=== PATIENT | female | born 1955 | race Caucasian/White ===

== ENCOUNTER → 2019-03-27 12:52 | Outpatient (BNVA) | payer MEDICARE, OTHER, MEDICAID, SELFPAY | PROVIDERS: Family Provider Family Medicine; PCP Nurse Practitioner; Visit Provider Nurse Practitioner Family | DX: I10 Essential (primary) hypertension (principal); F32.9 Major depressive disorder, single episode, unspecified; E03.9 Hypothyroidism, unspecified; E78.5 Hyperlipidemia, unspecified; G47.00 Insomnia, unspecified; K21.9 Gastro-esophageal reflux disease without esophagitis | CPT/HCPCS: 80053; 80061; 84443; 85025 ==

== ENCOUNTER → 2019-08-24 12:12 | Outpatient (BNVA) | payer MEDICARE, OTHER, MEDICAID, SELFPAY | PROVIDERS: Family Provider Family Medicine; PCP Nurse Practitioner; Visit Provider Nurse Practitioner Family | DX: I10 Essential (primary) hypertension (principal); E55.9 Vitamin D deficiency, unspecified; F32.9 Major depressive disorder, single episode, unspecified; K21.9 Gastro-esophageal reflux disease without esophagitis; E03.9 Hypothyroidism, unspecified; L30.9 Dermatitis, unspecified; F41.8 Other specified anxiety disorders; G47.00 Insomnia, unspecified; E78.5 Hyperlipidemia, unspecified | CPT/HCPCS: 80053; 80061; 82306; 83735; 85025 ==

== ENCOUNTER → 2019-09-17 15:06 | Outpatient (BNVA) | payer MEDICARE, OTHER, MEDICAID, SELFPAY | PROVIDERS: Family Provider Family Medicine; PCP Family Medicine; Visit Provider Nurse Practitioner Family | DX: E03.9 Hypothyroidism, unspecified (principal); M79.641 Pain in right hand | CPT/HCPCS: 73120; 84443; 85025 ==

== ENCOUNTER → 2019-12-26 15:32 | Outpatient (BNVA) | payer MEDICARE, OTHER, SELFPAY | PROVIDERS: Family Provider Family Medicine; PCP Family Medicine; Visit Provider Orthopaedic Surgery | DX: M79.641 Pain in right hand (principal) | CPT/HCPCS: 73140 ==

== ENCOUNTER → 2020-04-22 17:21 | Outpatient (BNVA) | payer MEDICARE, OTHER, SELFPAY | PROVIDERS: Family Provider Family Medicine; PCP Family Medicine; Visit Provider Nurse Practitioner Family | DX: F32.9 Major depressive disorder, single episode, unspecified (principal); E03.9 Hypothyroidism, unspecified; I10 Essential (primary) hypertension; E78.5 Hyperlipidemia, unspecified; E55.9 Vitamin D deficiency, unspecified; G47.00 Insomnia, unspecified; M65.321 Trigger finger, right index finger; F41.8 Other specified anxiety disorders; K21.9 Gastro-esophageal reflux disease without esophagitis; F17.211 Nicotine dependence, cigarettes, in remission | CPT/HCPCS: 80053; 80061; 82306; 84443; 85025 ==

== ENCOUNTER → 2020-08-04 16:02 | Outpatient (BNVA) | payer MEDICARE, OTHER, SELFPAY | PROVIDERS: Family Provider Family Medicine; PCP Family Medicine; Visit Provider Nurse Practitioner Family | DX: F32.9 Major depressive disorder, single episode, unspecified (principal); K21.9 Gastro-esophageal reflux disease without esophagitis; E03.9 Hypothyroidism, unspecified; I10 Essential (primary) hypertension; E78.5 Hyperlipidemia, unspecified; G47.00 Insomnia, unspecified; Z68.33 Body mass index [BMI] 33.0-33.9, adult | CPT/HCPCS: 80053; 80061; 84443; 85025 ==

== ENCOUNTER 2020-11-29 17:07 | Emergency (ER) | payer MEDICARE, OTHER, SELFPAY ==
[2020-11-29 17:29] VITALS: BP 154/73; PULSE 154; RESP 18; TEMP 13.3; O2SAT 98; BMI 33.3
--- NOTE | 2020-11-29 19:33 | ED_ITS ---
HPI - Wound/Laceration General: Chief Complaint: Wound/Laceration Stated Complaint: laceration to right hand/finger Time Seen by Provider: 11/29/20 19:33 History of Present Illness: HPI narrative: 65-year-old female comes in today with injury to the right index finger. Patient was working on the brakes of her vehicle striking it with a crescent wrench which slipped causing her to strike her dorsal index finger causing a laceration. Patient has a 2 cm laceration to the finger. Patient does have an old injury to the finger where tendon function was compromised. Patient needs her tetanus updated. Patient denies any other concerns. Review of Systems General: Reports: 10 or more systems reviewed and unremarkable except in HPI and below Skin/Breast: Reports: other (Finger laceration.) PFSH ED PFSH: Medical History (Updated 11/29/20 @ 20:29 by ALVINA Finney) Depression with anxiety Essential hypertension GERD (gastroesophageal reflux disease) Hyperlipemia Hypothyroid Insomnia Vitamin D insufficiency Surgical History H/O eye surgery (~03/2019) S/P tubal ligation Family History Family/Other CAD (coronary artery disease) Multiple family members Social History Smoking and tobacco status: former smoker Quit status (tobacco): has quit using tobacco Year quit tobacco: 1972 Former quit date comment: smoked 2-3 PPD x 3 yrs Second hand smoke exposure: Yes Alcohol intake: never Lives independently: Yes Household members: spouse Marital status: Current occupational status: retired History of recent travel: No Current gender identity: Female Physical Exam Const: COMMON NORMALS: no acute distress and patient oriented x3 GENERAL APPEARANCE: cooperative HENMT: COMMON NORMALS: normocephalic and Normal external nose present HEAD & SCALP: normal to inspection and normocephalic NOSE: Normal external nose present Eye: GENERAL EYE: appearance normal, both eyes and all related structures Neck/C-Spine: COMMON NORMALS: full ROM Chest: COMMONS NORMALS: normal inspection of the chest Resp: COMMON NORMALS: normal respiratory effort EFFORT & INSPECTION: Yes able to speak in complete sentences Cardio: COMMON NORMALS: regular rate and regular rhythm RATE: regular rate RHYTHM: regular rhythm GI: COMMON NORMALS: non-tender Extremity: COMMON NORMALS: normal to inspection Neuro: COMMON NORMALS: patient oriented x3 and moves all extremities Psych: COMMON NORMALS: mental status grossly normal and cooperative Skin: NARRATIVE SKIN EXAM: 2 cm laceration to the dorsal right index finger on the proximal phalanx. Procedures Laceration Laceration 1: Site: hand Side (If applicable): right Size (cm): 2 Description: linear Depth: simple, single layer Local Anesthetic: bupivacaine 0.25% Amount of anesthesia used (mL): 1 Pre-repair: wound explored and irrigated extensively Skin layer closed with: nylon Size (cm): 5-0 Number of sutures: 4 Technique: simple, interrupted Course Vital Signs: Vital signs: Vital Signs Temperature 56 F L 11/29/20 17:29 Pulse Rate 53 L 11/29/20 19:35 Respiratory Rate 18 11/29/20 17:29 Blood Pressure 174/91 11/29/20 19:35 Pulse Oximetry 98 11/29/20 19:35 MDM - Wound/Laceration MDM Narrative: Medical decision making narrative: Patient comes in for injury to the right index finger. On exam patient appears well. Patient has some reduced mobility to the finger due to an old injury. There is a 2 cm laceration noted. No signs of tendon laceration is noted. No fracture is noted. Differential diagnosis includes laceration, contusion, need for prophylaxis tetanus. Tetanus was updated. Wound was closed with four 5-0 sutures. Patient tolerated well. Discharge Plan Discharge Patient Disposition: Home Clinical Impression: Laceration of finger Qualifiers: Encounter type: initial encounter Finger: index finger Damage to nail status: without damage Foreign body presence: without foreign body Laterality: right Qualified Code(s): S61.210A - Laceration without foreign body of right index finger without damage to nail, initial encounter Condition: Stable Prescriptions: New clindamycin HCl 150 mg capsule 150 mg PO BID Qty: 10 RF: 0 No Action omega 9-zwg-taa-fish oil [Fish Oil] 360-1,200 mg capsule,delayed release(DR/EC) 1 cap PO DAILY RF: 0 ketoconazole 2 % cream 1 applic TOPICAL BID Qty: 30 RF: 0 mupirocin 2 % ointment 1 applic TOPICAL BID Qty: 22 RF: 0 potassium gluconate 595 mg (99 mg) tablet extended release See Rx Instructions PO .COMPLEX RF: 0 betamethasone, augmented 0.05 % ointment 1 applic TOPICAL BID Qty: 50 RF: 4 citalopram 20 mg tablet 20 mg PO QDAY 90 Days Qty: 90 RF: 1 famotidine 20 mg tablet 20 mg PO QDAY 90 Days Qty: 90 RF: 1 levothyroxine 50 mcg tablet 50 mcg PO QDAY 90 Days Qty: 90 RF: 1 lisinopril 20 mg tablet 20 mg PO QDAY 90 Days Qty: 90 RF: 1 lovastatin 20 mg tablet 20 mg PO QDAY 90 Days Qty: 90 RF: 1 zolpidem [Ambien] 10 mg tablet 10 mg PO .at bedtime PRN (Reason: insomnia) 30 Days Qty: 30 RF: 5 estradiol [Estrace] 0.01 % (0.1 mg/gram) cream 1 gm VAGINAL .TWICE A WEEK RF: 0 loratadine [Claritin] 10 mg tablet 10 mg PO QDAY RF: 0 magnesium 250 mg tablet 250 mg PO QDAY RF: 0 aspirin 81 mg tablet,delayed release (DR/EC) 81 mg PO QDAY RF: 0 albuterol sulfate [ProAir HFA] 90 mcg/actuation HFA aerosol inhaler 2 puff inhalation Q6H PRN (Reason: shortness of breath or wheezing) Qty: 8.5 RF: 2 acyclovir 800 mg tablet 800 mg PO QID 7 Days Qty: 28 RF: 0 Discharge Orders: Discharge ED (Routine); Ordered 11/29/20 Ordered By: Manuel Dc Referrals: Namrata Jon MD [Primary Care Provider] - Discharge Diet: Usual diet Discharge Activity: Increase activity as tolerated Patient Instructions: Laceration (ED), Opioid Safety Activity Restrictions/Additional Instructions: Keep wound clean and dry especially for the next 48 hours. Then you can shower without concern of getting wet. Try not to submerge the wound under water for long periods of time. Dry thoroughly after cleaning. Use antibiotic 1 capsule twice a day for the next 5 days. Sutures need to come out in 7 days. Follow-up with primary care or return to the ER for new concerns. Coding Level of Care Code ED [employer] for [employer] Exam Comprehensive
[2020-11-29 19:35] VITALS: BP 174/91; PULSE 53; O2SAT 98
[2020-11-29] MEDS: tetanus-dipt-pertussis 0.5 mL SDV IM (19:59)
[2020-11-29] MEDS: clindamycin 150 mg Capsule PO (20:46)
[2020-11-29 20:58] VITALS: RESP 16
== END 2020-11-29 21:01 | disposition home or self-care (01) ==
PROVIDERS: Emergency Provider Nurse Practitioner Family; PCP Family Medicine
DX: S61.210A Laceration without foreign body of right index finger without damage to nail, initial encounter (principal); Z79.82 Long term (current) use of aspirin; I10 Essential (primary) hypertension; E78.5 Hyperlipidemia, unspecified; Z87.891 Personal history of nicotine dependence; Z23 Encounter for immunization; W22.8XXA Striking against or struck by other objects, initial encounter
CPT/HCPCS: 12001; 90715; 96372; 99283; J3490

== ENCOUNTER → 2021-02-05 11:43 | Outpatient (BNVA) | payer MEDICARE, OTHER, SELFPAY | PROVIDERS: PCP Family Medicine; Visit Provider Nurse Practitioner Family | DX: I10 Essential (primary) hypertension (principal); E55.9 Vitamin D deficiency, unspecified | CPT/HCPCS: 80053; 80061; 81000; 81003; 82306; 84443; 85025 ==

== ENCOUNTER → 2021-02-26 10:56 | Outpatient (BNVA) | payer MEDICARE, OTHER, SELFPAY | PROVIDERS: PCP Family Medicine; Visit Provider Nurse Practitioner Family | DX: I10 Essential (primary) hypertension (principal); E55.9 Vitamin D deficiency, unspecified | CPT/HCPCS: 80053; 80061; 82306; 84443 ==

== ENCOUNTER → 2021-10-21 17:28 | Outpatient (BNVA) | payer MEDICARE, OTHER, SELFPAY | PROVIDERS: PCP Family Medicine; Visit Provider Nurse Practitioner Family | DX: E78.5 Hyperlipidemia, unspecified (principal); E03.9 Hypothyroidism, unspecified; I10 Essential (primary) hypertension; E55.9 Vitamin D deficiency, unspecified; G47.00 Insomnia, unspecified; K21.9 Gastro-esophageal reflux disease without esophagitis; F41.8 Other specified anxiety disorders; L20.9 Atopic dermatitis, unspecified; M25.551 Pain in right hip; M25.552 Pain in left hip | CPT/HCPCS: 80053; 80061; 82306; 83735; 84443; 85025 ==

== ENCOUNTER → 2022-05-04 12:42 | Outpatient (BNVA) | payer MEDICARE, OTHER, SELFPAY | PROVIDERS: PCP Family Medicine; Visit Provider Nurse Practitioner Family | DX: F41.8 Other specified anxiety disorders (principal); I10 Essential (primary) hypertension; E55.9 Vitamin D deficiency, unspecified | CPT/HCPCS: 80053; 80061; 82306; 84443; 85025 ==

== ENCOUNTER → 2022-11-03 15:22 | Outpatient (BNVA) | payer MEDICARE, OTHER, SELFPAY | PROVIDERS: PCP Family Medicine; Visit Provider Nurse Practitioner Family | DX: I10 Essential (primary) hypertension (principal); E55.9 Vitamin D deficiency, unspecified | CPT/HCPCS: 80053; 80061; 82306; 82607; 83735; 84443; 85025 ==

== ENCOUNTER → 2023-04-12 15:45 | Outpatient (BNVA) | payer MEDICARE, OTHER, SELFPAY | PROVIDERS: PCP Family Medicine; Visit Provider Nurse Practitioner Family | DX: E55.9 Vitamin D deficiency, unspecified (principal); I10 Essential (primary) hypertension; E03.9 Hypothyroidism, unspecified | CPT/HCPCS: 80053; 80061; 82306; 84443; 85025 ==

== ENCOUNTER → 2023-10-21 11:52 | Outpatient (BNVA) | payer MEDICARE, SELFPAY | PROVIDERS: PCP Family Medicine; Visit Provider Nurse Practitioner Family | DX: I10 Essential (primary) hypertension (principal); E55.9 Vitamin D deficiency, unspecified | CPT/HCPCS: 80053; 80061; 82306; 84443; 85025 ==

== ENCOUNTER → 2024-05-03 11:42 | Outpatient (BNVA) | payer MEDICARE, SELFPAY | PROVIDERS: Family Provider Nurse Practitioner Family; PCP Nurse Practitioner Family; Visit Provider Nurse Practitioner Family | DX: E78.5 Hyperlipidemia, unspecified (principal); I10 Essential (primary) hypertension; E55.9 Vitamin D deficiency, unspecified | CPT/HCPCS: 80053; 80061; 82306; 83735; 84443; 85025 ==

== ENCOUNTER → 2024-07-04 12:21 | Outpatient (BNVA) | payer MEDICARE, SELFPAY | PROVIDERS: Family Provider Nurse Practitioner Family; PCP Nurse Practitioner Family; Visit Provider Nurse Practitioner Family | DX: M17.11 Unilateral primary osteoarthritis, right knee (principal); N18.9 Chronic kidney disease, unspecified | CPT/HCPCS: 73562; 80048; 81003 ==

== ENCOUNTER → 2024-08-08 13:34 | Outpatient (BNVA) | payer MEDICARE, SELFPAY | PROVIDERS: Family Provider Nurse Practitioner Family; PCP Nurse Practitioner Family; Visit Provider Nurse Practitioner Family | DX: L72.0 Epidermal cyst (principal) | CPT/HCPCS: 17000; 17110; 99203 ==

== ENCOUNTER 2024-08-29 15:03 | Outpatient (CLI) | payer MEDICARE, SELFPAY | END 2024-08-29 15:04 | disposition home or self-care (01) | LOC: SLEEP 15:04 | PROVIDERS: Family Provider Nurse Practitioner Family; PCP Nurse Practitioner Family; Visit Provider Internal Medicine Pulmonary Disease | DX: G47.10 Hypersomnia, unspecified (principal) | CPT/HCPCS: G0399 ==

== ENCOUNTER → 2024-10-01 14:26 | Outpatient (BNVA) | payer MEDICARE, SELFPAY | PROVIDERS: Family Provider Nurse Practitioner Family; PCP Nurse Practitioner Family; Visit Provider Nurse Practitioner Family | DX: L28.0 Lichen simplex chronicus (principal); L81.4 Other melanin hyperpigmentation; L57.8 Other skin changes due to chronic exposure to nonionizing radiation; L82.0 Inflamed seborrheic keratosis; L53.8 Other specified erythematous conditions; R20.8 Other disturbances of skin sensation; R58 Hemorrhage, not elsewhere classified; Z78.9 Other specified health status; L29.89 Other pruritus; L57.0 Actinic keratosis | CPT/HCPCS: 17000; 17110; 99214 ==

== ENCOUNTER → 2024-12-25 14:03 | Outpatient (BNVA) | payer MEDICARE, SELFPAY | PROVIDERS: Family Provider Nurse Practitioner Family; PCP Nurse Practitioner Family; Visit Provider Nurse Practitioner Family | DX: I10 Essential (primary) hypertension (principal); E55.9 Vitamin D deficiency, unspecified; E78.5 Hyperlipidemia, unspecified | CPT/HCPCS: 80053; 80061; 82306; 82607; 83735; 84443; 85025 ==